=== PATIENT | female | born 1950 | race Caucasian/White ===

== ENCOUNTER 2018-05-15 08:44 | Emergency (ER) | END 2018-05-15 12:32 | disposition home or self-care (01) ==

== ENCOUNTER 2019-03-13 10:30 | Emergency (ER) | payer MEDICAID ==
[~2019-03-13] VITALS: Ht 167.6 cm; Wt 73.5 kg
[~2019-03-13 10:30] MED LIST: BEN25 PO; BEN50 PO; CEPH-443 PO; CIPR500T4 PO; CLOT30CR24 TOP; HC.5O30 TOP; HYDR25SU23 PR; PRED20TA PO; TRIA60LO10 TOP
[2019-03-13 10:51] VITALS: BP 180/80; PULSE 65; RESP 20; Ht 167.6 cm; Wt 73.5 kg
--- NOTE | 2019-03-13 11:42 | ERD ---
ER Documentation Chief Complaint Chief Complaint c/o rash on right axilla area x8 days HPI Patient is a 68 years old female presenting to the ED for pruritic rash on bilateral axilla and suprapubic area for 5 years. Patient was seen and evaluated in the clinic multiple times with resolution of symptoms with medication. Patient denies being evaluated by club car attendant. Patient denies fever, chills, night sweats, pain. ROS All systems reviewed and are negative except as per history of present illness. Medications Home Meds Active Scripts Hydrocortisone* Topical (Hydrocortisone* Topical) 0.5%- 28.35 Gm Oint, 1 APPLIC TOP BID for 7 Days, TUB Prov:LUNA ZELAYA PA-C 03/13/19 Diphenhydramine Hcl* (Benadryl*) 50 Mg Cap, 50 MG PO Q6H PRN for ITCHING/RASH, #30 CAP Prov:LUNA ZELAYA PA-C 03/13/19 Triamcinolone Acetonide (Triamcinolone Acetonide) 0.025% - 60 Ml Lotion, 1 APPLIC TOP TID, #1 BOTTLE Prov:LUNA ZELAYA PA-C 03/13/19 Ciprofloxacin Hcl* (Ciprofloxacin Hcl*) 500 Mg Tablet, 500 MG PO BID for 7 Days, TAB Prov:KATIE SANCHEZ PA-C 05/15/18 Prednisone* (Prednisone*) 20 Mg Tab, 60 MG PO DAILY for 5 Days, TAB Prov:DYLAN MENDEZ PA-C 02/15/16 Diphenhydramine Hcl* (Benadryl*) 25 Mg Cap, 25 MG PO Q6, #30 CAP Prov:DYLAN MENDEZ PA-C 02/15/16 Cephalexin* (Keflex*) 500 Mg Capsule, 500 MG PO QID for 7 Days, CAP Prov:DYLAN MENDEZ PA-C 02/15/16 Allergies Allergies: Coded Allergies: No Known Allergy (Unverified , 05/15/18) PMhx/Soc History of Surgery: No Anesthesia Reaction: Yes Hx Neurological Disorder: No Hx Respiratory Disorders: No Hx Cardiac Disorders: No Hx Psychiatric Problems: No Hx Miscellaneous Medical Probl: No Hx Alcohol Use: No Hx Substance Use: No Hx Tobacco Use: No FmHx Family History: No diabetes, No coronary disease, No other Physical Exam Vitals Vital Signs Date Temp Pulse Resp B/P (MAP) Pulse Ox O2 O2 Flow FiO2 Time Delivery Rate 03/13/19 97.8 65 20 180/80 97 10:51 (113) Physical Exam Const: No acute distress Head: Atraumatic Resp: Clear to auscultation bilaterally Cardio: Regular rate and rhythm, no murmurs Skin: Multiple macular rash in bilateral axillary region that are nontender. No signs of induration, pus drainage, lesion, nodules. Patient withheld suprapubic exam. Psych: Normal Mood and Affect Procedures/MDM Patient was seen and evaluated for rash without complications. Patient's clinical presentation most likely resembles heat rash. Low suspicion for cell ulitis, fungal infection due to signs of scales, dryness, induration. Patient is stable for discharge. Follow-up with PCP. Patient will be discharged with triamcinolone cream, hydrocortisone cream, and Benadryl. She was advised to avoid scratching rash. Patient was advised to follow-up with club car attendant for further evaluation. Addendum: Prior to discharge patient requested to be evaluated by a female provider. RADHA Paulson evaluated patient. RADHA Paulson reports erythematous macular rash with satellite lesions in bilateral groin area hemorrhoid at 7 o'clock position of the anus. Peak is 1 recommends clotrimazole and Anusol follow-up with PCP. Departure Diagnosis: Primary Impression: Rash Additional Impression: Hemorrhoid Hemorrhoid type: unspecified Qualified Codes: K64.9 - Unspecified hemorrhoids Condition: Stable Patient Instructions: Self-Care for Skin Rashes Referrals: [facility] Additional Instructions: Paciente aconseja volver a Departamento de urgencias inmediatamente para sntomas nuevos o que empeoran . Paciente aconseja posteriores con el PCP en 2-3 giles . Paciente verbaliza la comprehensin y est de acuerdo con el tratamiento y el curso de accin. Si el paciente no tiene ninguna de atencin primaria pueden seguir con [facility] [address] [place] [address] o [facility] + [address] [address] LUNA ZELAYA PA-C Mar 13, 2019 11:42
--- NOTE | 2019-03-14 23:00 | EN ---
Date/Time of Note Date/Time of Note DATE: 03/14/19 TIME: 22:57 ER Progress Note Pt requested female provider for vaginal exam. Vaginal and rectal exam performed by me at request of pt after my colleague RADHA Bo evaluated pt. Findings consisted with external rectal hemorrhoid and intertrigo. I have recommended addition of anusol-hc for treatment of hemorrhoid as well as clotrimazole for fungal infection. Findings discussed with RADHA Bo who has modified treatment plan accordingly after my exam. BOB LAUREN PA-C Mar 14, 2019 23:00
== END 2019-03-13 13:14 | disposition home or self-care (01) ==
LOC: FTE 10:30
DX: K64.9 Unspecified hemorrhoids (principal)
CPT/HCPCS: 99283